=== PATIENT | male | born 1995 | race Caucasian/White ===

== ENCOUNTER 2016-12-27 14:07 | Emergency (ER) | payer SELFPAY ==
--- NOTE | 2016-12-27 14:36 | RAD ---
HISTORY: Right ankle injury COMPARISONS: None VIEWS: 3, Frontal, lateral, and oblique views right ankle FINDINGS: BONE DENSITY: Normal. BONES: There is no displaced fracture. JOINTS: There is no arthropathy. ALIGNMENT: There is no dislocation. SOFT TISSUES: There is soft tissue swelling over the lateral malleolus OTHER FINDINGS: None. IMPRESSION: SOFT TISSUE SWELLING. NO ACUTE OSSEOUS INJURY. IF SYMPTOMS PERSIST, RECOMMEND REPEAT IMAGING.
[2016-12-27 14:59] VITALS: BP 96/55
--- NOTE | 2016-12-27 15:16 | UC ---
Lower Extremity/Ankle HPI - HPI Summary HPI Summary: playing basketball, last night jumped up and came down on inverted right foot. Progressive pain and swelling. On crutches today. No prior fracture of this ankle. - History of Current Complaint Chief Complaint: UCLowerExtremity Stated Complaint: RIGHT ANKLE INJURY Time Seen by Provider: 12/27/16 14:58 Hx Obtained From: Patient Onset/Duration: Gradual Onset, Lasting Days - 1 Severity Initially: Moderate Severity Currently: Moderate Aggravating Factor(s): Standing, Ambulation Alleviating Factor(s): Rest, Elevation, Ice Able to Bear Weight: No - Risk Factors Gout Risk Factors: Male DVT Risk Factors: Negative Septic Arthritis Risk Factor: Negative - Allergies/Home Medications Allergies/Adverse Reactions: Allergies Allergy/AdvReac Type Severity Reaction Status Date / Time No Known Allergies Allergy Verified 12/27/16 14:59 Home Medications: Home Medications NK [No Home Medications Reported] 12/27/16 [History Confirmed 12/27/16] PMH/Surg Hx/FS Hx/Imm Hx Previously Healthy: Yes - Surgical History Surgical History: None - Family History Known Family History: Positive: Hypertension - Social History Occupation: Student Lives: With Family Alcohol Use: Occasionally Substance Use Type: Cocaine Substance Use Comment - Amount & Last Used: Cocaine Smoking Status (MU): Never Smoked Tobacco Review of Systems Constitutional: Negative Skin: Negative Eyes: Negative ENT: Negative Respiratory: Negative Cardiovascular: Negative Gastrointestinal: Negative Genitourinary: Negative Motor: Negative Neurovascular: Negative Musculoskeletal: Arthralgia, Decreased ROM, Myalgia Neurological: Negative Psychological: Negative All Other Systems Reviewed And Are Negative: Yes Physical Exam Triage Information Reviewed: Yes Appearance: Well-Appearing, No Pain Distress, Well-Nourished Vital Signs: Initial Vital Signs Temp 98.9 F 12/27/16 14:54 Pulse 66 12/27/16 14:54 Resp 16 12/27/16 14:54 BP 96/55 12/27/16 14:54 Pulse Ox 100 12/27/16 14:54 Vital Signs Reviewed: Yes Eye Exam: Normal Neck exam: Normal Respiratory Exam: Normal Cardiovascular Exam: Normal Musculoskeletal Exam: Other - right ankle with swelling and tenderness, mild/mod , over lateral malleolus Neurological Exam: Normal Psychological Exam: Normal Skin Exam: Normal Diagnostics - Laboratory Diagnostic Studies Completed/Ordered: xray neg Lower Extremity Course/Dx - Differential Dx/Diagnosis Differential Diagnosis/HQI/PQRI: Fracture (Closed), Sprain Provider Diagnoses: right ankle sprain Discharge - Discharge Plan Condition: Stable Disposition: HOME Patient Education Materials: Ankle Sprain (ED), Ankle Stirrup Splint (ED), Ankle Exercises (GEN) Forms: *Gen. Provider Communication, *School Release
== END 2016-12-27 16:00 | disposition home or self-care (01) ==
LOC: UCCORT 14:07
DX: S93.401A Sprain of unspecified ligament of right ankle, initial encounter (principal); X50.1XXA Overexertion from prolonged static or awkward postures, initial encounter; Y93.67 Activity, basketball; Y92.310 Basketball court as the place of occurrence of the external cause; F14.90 Cocaine use, unspecified, uncomplicated
CPT/HCPCS: 99202; G0463